=== PATIENT | female | born 1945 | race African-American/Black ===

== ENCOUNTER 2016-11-07 02:19 | Emergency (ER) | payer MEDICARE, OTHER ==
[~2016-11-07] VITALS: Ht 165.1 cm; Wt 72.0 kg
[~2016-11-07 02:19] MED LIST: FLEX5TAB PO; LORA-392; LORTA5 PO; PRIN20TA2 PO; TOPA15CA PO
[2016-11-07 02:21] VITALS: BP 136/76; PULSE 69; RESP 16; TEMP 98.8; O2SAT 97
[2016-11-07] MEDS ORDERED: LISI10TA3 PO (02:43)
[2016-11-07 04:16] LABS: AUTOMATED NEUTROPHIL # 2.2 TH/MM3 (1.8-7.7); BASOPHIL % 0.8 % (0.0-2.0); EOSINOPHIL # 0.2 TH/MM3 (0-0.4); EOSINOPHIL % 3.7 % (0.0-4.0); HEMATOCRIT 38.1 % (35.0-46.0); HEMO FLAGS DIFF FINAL; LYMPH % 42.3 % (9.0-44.0); LYMPHOCYTE # 2.2 TH/MM3 (1.0-4.8); MEAN CELL VOLUME 81.8 FL (80.0-100.0); MEAN CORPUSCULAR HEMOGLOBIN 27.8 PG (27.0-34.0); MEAN CORPUSCULAR HGB CONC 33.9 % (32.0-36.0); MONO % 9.8 % (0.0-8.0); NEUT % 43.4 % (16.0-70.0); PLATELET COUNT 263 TH/MM3 (150-450); RED BLOOD COUNT 4.65 MIL/MM3 (4.00-5.30); RED CELL DISTRIBUTION WIDTH 12.4 % (11.6-17.2); WHITE BLOOD COUNT 5.2 TH/MM3 (4.0-11.0)
[2016-11-07 04:23] LABS: BACTERIA, URINE RARE /hpf; BLOOD, URINE NEG (NEG); COMMENT (UR) CULT NOT INDICATED; CULTURE IF INDICATED CULT NOT INDICATED; GLUCOSE,URINE NEG (NEG); KETONE, URINE NEG (NEG); MUCUS URINE FEW /lpf (OCC); NITRITE,URINE NEG (NEG); PH, URINE 5.5 (5.0-8.5); RENAL EPITHELIAL CELLS <1 /hpf; SQUAMOUS EPITHELIAL CELL URINE <1 /hpf (0-5); URINE COLOR YELLOW (YELLW/STRAW)
[2016-11-07 04:37] LABS: ALKALINE PHOSPHATASE 62 U/L (45-117); TOTAL BILIRUBIN ADULT 0.4 MG/DL (0.2-1.0)
--- NOTE | 2016-11-07 04:39 | RADRPT ---
EXAM DATE/TIME: 11/07/2016 04:06 [place] COMPARISON: ABDOMEN FLAT & UPRIGHT, August 31, 2015, 10:46. INDICATIONS : Abdomen pain. MEDICAL HISTORY : Hypertension. SURGICAL HISTORY : Hernia, Small bowel resection. ENCOUNTER: Initial ACUITY: 1 day PAIN SCORE: 0/10 LOCATION: Bilateral abdomen FINDINGS: Supine and upright views of the abdomen were performed. There is an abnormal bowel gas pattern with m ild gaseous distention in the descending and transverse colon. There are multiple loops of non-dilate d air containing small bowel present levels on the erect. There is no free clips and patricia througho ut the abdomen. No abnormal masses, calcifications, or organomegaly is seen. The visualized lower adore ngs are clear. No evidence of free intraperitoneal gas. The osseous structures are unremarkable. CONCLUSION: 1. Nonspecific bowel gas pattern most consistent with an ileus or gastroenteritis. 2. No free air. 3. Cardiomegaly. Gabriele Hylton MD on November 07, 2016 at 4:36 Board Certified Radiologist. This report was verified electronically.
[2016-11-07 04:42] LABS: ALT (GPT) 26 U/L (10-53); ANION GAP 7 MEQ/L (5-15); AST (GOT) 29 U/L (15-37); BICARBONATE 24.7 MEQ/L (21.0-32.0); BLOOD UREA NITROGEN 23 MG/DL (7-18); CHLORIDE 108 MEQ/L (98-107); GLOMERULAR FILTRATION RATE 94 ML/MIN (>89); SODIUM (NA) 140 MEQ/L (136-145)
[2016-11-07 04:43] LABS: POTASSIUM 4.9 MEQ/L (3.5-5.1)
[2016-11-07 05:58] VITALS: BP 130/68
--- NOTE | 2016-11-07 06:01 | PD ---
HPI Chief Complaint: GI Complaint Time Seen by Provider: 03:38 Travel History International Travel<30 days: No Contact w/Intl Traveler<30days: No Traveled to known affect area: No History of Present Illness HPI Patient is a 71-year-old female who comes in complaining of diarrhea. She says she felt like she was constipated, so she drank some milk and this caused her to have diarrhea. She says milk has caused her to have diarrhea in the past, but she says she felt like she needed to have a bowel movement, so she drank the milk. She has not had any abdominal pain. She denies nausea or vomiting. She denies fever or chills. She denies seeing any blood in her stool. 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) Thyroid Disease: No ?: Not Menopausal: Yes : 3 Para: 3 : 0 Past Surgical History Abdominal Surgery: Yes (SMALL BOWEL RESECTION) Body Medical Devices: NONE Cardiac Surgery: No Ear Surgery: No Endocrine Surgery: No Eye Surgery: No Genitourinary Surgery: No Gynecologic Surgery: Yes (HYSTERECTOMY) Hysterectomy: Yes Oral Surgery: No Pacemaker: No Thoracic Surgery: No Other Surgery: Yes Social History Alcohol Use: No Tobacco Use: No Substance Use: No Allergies-Medications (Allergen,Severity, Reaction): Coded Allergies: Sulfa (Verified Allergy, Mild, SWELLING, NAUSEA, 08/25/15) Reported Meds & Prescriptions Reported Meds & Active Scripts Active Reported Lisinopril 10 Mg Tab 10 Mg PO DAILY Review of Systems Except as stated in HPI: all other systems reviewed are Neg General / Constitutional: No: Fever, Chills HENT: No: Headaches, Lightheadedness Cardiovascular: No: Chest Pain or Discomfort Respiratory: No: Shortness of Breath Gastrointestinal: Positive: Diarrhea, No: Nausea, Vomiting, Abdominal Pain Musculoskeletal: No: Myalgias, Weakness Skin: No Rash, No Change in Pigmentation Physical Exam Narrative GENERAL: Awake and alert, in no acute distress. SKIN: Focused skin assessment warm/dry. HEAD: Atraumatic. Normocephalic. EYES: Pupils equal and round. No scleral icterus. ENT: Mucous membranes pink and moist. NECK: Trachea midline. No JVD. CARDIOVASCULAR: Regular rate and rhythm. No murmur appreciated. RESPIRATORY: No accessory muscle use. Clear to auscultation. Breath sounds equal bilaterally. GASTROINTESTINAL: Abdomen soft, non-tender, nondistended. MUSCULOSKELETAL: No obvious deformities. No clubbing. No cyanosis. No edema. NEUROLOGICAL: Awake and alert. No obvious cranial nerve deficits. Motor grossly within normal limits. Normal speech. PSYCHIATRIC: Appropriate mood and affect; insight and judgment normal. Data Data Last Documented VS Vital Signs Date Time Temp Pulse Resp B/P Pulse Ox O2 Delivery O2 Flow Rate FiO2 11/07/16 02:21 98.8 69 16 136/76 97 Room Air Orders Complete Blood Count With Diff (11/07/16 03:44) Comprehensive Metabolic Panel (11/07/16 03:44) Urinalysis - C+S If Indicated (11/07/16 03:44) Abdomen, Flat & Upright (11/07/16 ) Labs Laboratory Tests Test 11/07/16 11/07/16 03:30 03:55 Urine Color YELLOW Urine Turbidity CLEAR Urine pH 5.5 Urine Specific [place] 1.019 Urine Protein NEG mg/dL Urine Glucose (UA) NEG mg/dL Urine Ketones NEG mg/dL Urine Occult Blood NEG Urine Nitrite NEG Urine Bilirubin NEG Urine Urobilinogen LESS THAN 2.0 MG/DL Urine Leukocyte Esterase LARGE Urine RBC LESS THAN 1 /hpf Urine WBC 2 /hpf Urine Squamous Epithelial <1 /hpf Cells Urine Renal Epithelial Cells <1 /hpf Urine Bacteria RARE /hpf Urine Mucus FEW /lpf Microscopic Urinalysis Comment CULT NOT INDICATED White Blood Count 5.2 TH/MM3 Red Blood Count 4.65 MIL/MM3 Hemoglobin 12.9 GM/DL Hematocrit 38.1 % Mean Corpuscular Volume 81.8 FL Mean Corpuscular Hemoglobin 27.8 PG Mean Corpuscular Hemoglobin 33.9 % Concent Red Cell Distribution Width 12.4 % Platelet Count 263 TH/MM3 Mean Platelet Volume 9.2 FL Neutrophils (%) (Auto) 43.4 % Lymphocytes (%) (Auto) 42.3 % Monocytes (%) (Auto) 9.8 % Eosinophils (%) (Auto) 3.7 % Basophils (%) (Auto) 0.8 % Neutrophils # (Auto) 2.2 TH/MM3 Lymphocytes # (Auto) 2.2 TH/MM3 Monocytes # (Auto) 0.5 TH/MM3 Eosinophils # (Auto) 0.2 TH/MM3 Basophils # (Auto) 0.0 TH/MM3 CBC Comment DIFF FINAL Differential Comment Sodium Level 140 MEQ/L Potassium Level 4.9 MEQ/L Chloride Level 108 MEQ/L Carbon Dioxide Level 24.7 MEQ/L Anion Gap 7 MEQ/L Blood Urea Nitrogen 23 MG/DL Creatinine 0.74 MG/DL Estimat Glomerular Filtration 94 ML/MIN Rate Random Glucose 93 MG/DL Calcium Level 9.0 MG/DL Total Bilirubin 0.4 MG/DL Aspartate Amino Transf 29 U/L (AST/SGOT) Alanine Aminotransferase 26 U/L (ALT/SGPT) Alkaline Phosphatase 62 U/L Total Protein 6.5 GM/DL Albumin 3.3 GM/DL [facility] Medical Decision Making Medical Screen Exam Complete: Yes Emergency Medical Condition: Yes Medical Record Reviewed: Yes Differential Diagnosis Milk intolerance versus infectious diarrhea versus gastroenteritis Narrative Course Patient is a 71-year-old female comes in complaining of diarrhea. She says at first she felt constipated, so she drank some milk which Diarrhea. Exam shows no abdominal tenderness to palpation. Labs sent show no acute abnormalities, electrolytes are within normal limits. Abdominal x-ray shows no evidence of obstruction. Patient advised to not drink milk in the future. Advised to drink plenty of fluids. Advised follow-up with her doctor. Advised to return to the ED as needed for any worsening symptoms. Diagnosis Primary Impression: Diarrhea Qualified Code: R19.7 - Diarrhea, unspecified type Patient Instructions: Acute Diarrhea (ED), General Instructions Additional Instructions: Avoid drinking milk. Drink plenty of fluids. Follow up with your doctor. Return to the ED as needed for any worsening symptoms. Disposition: 01 DISCHARGE HOME Condition: Stable Angella Hameed MD November 07, 2016 06:01
== END 2016-11-07 06:07 | disposition home or self-care (01) ==
LOC: NEPC 02:19
DX: R19.7 Diarrhea, unspecified (principal); I10 Essential (primary) hypertension; Z88.2 Allergy status to sulfonamides
CPT/HCPCS: 74020; 80053; 81001; 85025; 99284